=== PATIENT | female | born 1955 | race Hispanic/Latino ===

== ENCOUNTER 2024-06-02 07:02 | Inpatient (IN) | payer MEDICARE ==
[~2024-06-02 07:02] MED LIST: ARAVA20 MG PO; CELEXA20 MG PO; GABAPENTIN400 MG PO; HYDROCHLOROTHIA25 MG PO; HYDROCODON-ACE1 EA12 PO; MAGNESIUM OXID400 MG PO; RINVOQ30 MG PO; ZOLPIDEM TARTRAT5 MG PO
[2024-06-02] MEDS: CELECOXIB 200 MG CAP ONE (07:36)
[2024-06-02] MEDS: DEXAMETHASONE SOD PHOS 10 MG/1 ML VIAL ONE (07:36)
[2024-06-02] MEDS: CEFAZOLIN SODIUM 2 GM ONE (07:37)
[2024-06-02] MEDS: GABAPENTIN 300 MG CAP ONE (07:38)
[2024-06-02] MEDS: LACTATED RINGER'S 1,000 ML ONE (07:38)
[2024-06-02] MEDS ORDERED: TRANEXAMIC ACID 20 ML ONE (09:35)
[2024-06-02] MEDS ORDERED: Vancomycin IV 500 MG ONE (09:35)
[2024-06-02] MEDS ORDERED: SODIUM CHLORIDE 0.9% 500ML 500 ML ONE (09:35)
[2024-06-02] MEDS ORDERED: LIDOCAINE HCL 2% LOCAL INJ 5 ML SDV VIAL INJ ONE (12:57)
[2024-06-02] MEDS ORDERED: KETOROLAC TROMETHAMINE 30 MG/ML VIAL ONE (12:57)
[2024-06-02] MEDS ORDERED: PROPOFOL IV EMULSION 10 MG/ML 20 ML VIAL ONE (12:57)
[2024-06-02] MEDS ORDERED: DEXAMETHASONE SOD PHOS INJ 4 MG/ML SDV ONE (12:57)
[2024-06-02] MEDS ORDERED: SEVOFLURANE INHAL SOLN 250 ML PEN BTL ONE (12:57)
[2024-06-02] MEDS ORDERED: ONDANSETRON HCL INJ 2MG/ML 2ML 2 MG/ML VIAL ONE (12:57)
[2024-06-02] MEDS ORDERED: DOCUSATE SODIUM 100 MG CAP PO PRN (13:00)
[2024-06-02] MEDS ORDERED: ACETAMINOPHEN 650 MG SUPP PR PRN (13:00)
[2024-06-02] MEDS ORDERED: ONDANSETRON HCL INJ 2MG/ML 2ML 2 MG/ML VIAL IV PRN (13:00)
[2024-06-02] MEDS ORDERED: DIPHENHYDRAMINE HCL INJ 50 MG/ML VIAL IV PRN (13:00)
[2024-06-02] MEDS: HYDROMORPHONE 1MG/1ML INJ ONE (13:28)
[2024-06-02] MEDS: ROPIVACAINE 246.25 MG, EPINEPHRINE HCL 1:1000 1ML 0.5 MG, CLONIDINE HCL 0.08 MG, KETORO... INJ ONE ×2 (14:55→14:56)
[2024-06-02 15:22] VITALS: PULSE 76; RESP 18; O2SAT 96
[2024-06-02 16:34] VITALS: BP 132/59; PULSE 75; RESP 19; TEMP 98.3; O2SAT 95
[2024-06-02] MEDS: CELECOXIB 200 MG CAP PO SCH (16:45)
[2024-06-02] MEDS: ASPIRIN 325 MG TAB PO SCH (16:45)
[2024-06-02] MEDS: SODIUM CHLORIDE 0.9% 1000ML 1,000 ML IV SCH (16:46)
[2024-06-02] MEDS ORDERED: FENTANYL CITRATE/PF 100MCG/2 ML INJ ONE ×2 (17:42→17:50)
[2024-06-02] MEDS ORDERED: MIDAZOLAM HCL 2 MG/2 ML VIAL ONE (17:50)
[2024-06-02 18:39] VITALS: PULSE 80; RESP 18; O2SAT 95
[2024-06-02] MEDS: SODIUM CHLORIDE 0.9% 1000ML 1,000 ML ONE (19:37)
[2024-06-02 20:00] VITALS: BP 145/74; PULSE 80; RESP 18; TEMP 98; O2SAT 97
[2024-06-02] MEDS: HYDROCODONE/APAP 5MG-325MG TAB PO PRN (20:43)
[2024-06-02] MEDS: ZOLPIDEM TARTRATE 5 MG TAB PO PRN (22:12)
[2024-06-03] VITALS: BP 143/68; PULSE 74; RESP 18; TEMP 98.1; O2SAT 95
[2024-06-03] MEDS: Vancomycin IV 1 GM in SODIUM CHLORIDE 0.9% 250ML 250 ML IV SCH (00:28)
[2024-06-03] MEDS: HYDROCODONE/APAP 7.5MG-325MG 1 EA TAB PO PRN (02:31)
[2024-06-03 04:00] VITALS: BP 148/68; PULSE 77; RESP 18; TEMP 98.7; O2SAT 98
[2024-06-03 05:28] LABS: HEMATOCRIT 28.4 % (34.2-44.1); HEMOGLOBIN 8.8 g/dL (12.0-16.0)
[2024-06-03 07:50] VITALS: PULSE 77; RESP 18; O2SAT 98
[2024-06-03 08:22] VITALS: BP 162/77; PULSE 73; RESP 18; TEMP 98.3; O2SAT 98
[2024-06-03 09:00] VITALS: BP 162/77; PULSE 73; RESP 18; TEMP 98.3; O2SAT 98
[2024-06-03] MEDS ORDERED: IRON SUCROSE 100 MG in SODIUM CHLORIDE 0.9% 100 ML IV SCH (09:30)
[2024-06-03] MEDS ORDERED: HYDRALAZINE HCL 20 MG/ML VIAL IV PRN (09:45)
[2024-06-03 11:42] VITALS: BP 156/62; PULSE 65; RESP 20; TEMP 98.4; O2SAT 100
[2024-06-03] MEDS: SODIUM FERRIC GLUCONATE COMPLX 125 MG in SODIUM CHLORIDE 0.9% 100 ML IV SCH (11:50)
[2024-06-03] MEDS ORDERED: ACETAMINOPHEN 1000 MG/100 ML IV PRN (13:00)
[2024-06-03] MEDS ORDERED: ASPIRIN81 MG PO (13:23)
[2024-06-03] MEDS ORDERED: GABAPENTIN 300 MG CAP PO SCH (17:00)
[2024-06-03] MEDS ORDERED: ZOLPIDEM TARTRATE 5 MG TAB PO SCH (21:00)
[2024-06-04] MEDS ORDERED: CITALOPRAM HYDROBROMIDE 20 MG TAB PO SCH (09:00)
[2024-06-04] MEDS ORDERED: MAGNESIUM OXIDE 400 MG TAB PO SCH (09:00)
== END 2024-06-03 15:30 | disposition home or self-care (01) | DRG 467 ==
LOC: OR 07:02 → PACU V 13:10 → MED/SURG2 14:11
PROVIDERS: ADMIT Specialist; ATTEND Specialist
PROC: 0SPC0JZ Removal of Synthetic Substitute from Right Knee Joint, Open Approach (ICD-10-PCS; 2024-06-02)
PROC: 0SRC0J9 Replacement of Right Knee Joint with Synthetic Substitute, Cemented, Open Approach (ICD-10-PCS; principal; 2024-06-02 10:39)
DX: T84.032A Mechanical loosening of internal right knee prosthetic joint, initial encounter (principal); I96 Gangrene, not elsewhere classified; D50.0 Iron deficiency anemia secondary to blood loss (chronic); M21.371 Foot drop, right foot; M19.90 Unspecified osteoarthritis, unspecified site; I10 Essential (primary) hypertension; M06.9 Rheumatoid arthritis, unspecified; Y83.1 Surgical operation with implant of artificial internal device as the cause of abnormal reaction of the patient, or of later complication, without mention of misadventure at the time of the procedure
CPT/HCPCS: 36415; 85014; 85018; 86850; 86900; 94799; C1713; C1776; J0171; J1100; J1170; J1885; J2001; J2250; J2405; J2795; J2916; J3370; J7030; J7040; J7050